=== PATIENT | female | born 1980 | race Caucasian/White ===

== ENCOUNTER 2017-02-18 10:07 | Emergency (ER) | payer OTHER ==
[~2017-02-18] VITALS: Ht 160 cm; Wt 80.4 kg
[~2017-02-18 10:07] MED LIST: DOCO200C PO; FISHCAP; IBUP600 PO; OXYC1SOL5 PO; PERI8.6T PO; VITA400C28
[2017-02-18 10:15] VITALS: BP 114/85; PULSE 116; RESP 15; TEMP 99.3; O2SAT 99
--- NOTE | 2017-02-18 10:39 | PD ---
HPI Chief Complaint: Anxiety Time Seen by Provider: 10:28 Travel History International Travel<30 days: No Contact w/Intl Traveler<30days: No Traveled to known affect area: No History of Present Illness HPI This 36-year-old female says she has not felt well for about a year and a half. She says she had a baby by year and a half ago she felt really well. She states that certain foods seem to make him nauseated. Since then she just feels weak and has palpitations. She does say she's been under some stress. She is going through divorce but thinks the stress that was less than before. She does say that her blood sugar has been elevated in the past and she was told she should keep an eye on it. She has been taking aspirin without much relief PFSH Past Medical History Medical History: Denies Significant Hx Diminished Hearing: No Influenza Vaccination: No ?: Unknown LMP: 1 MONTH Past Surgical History Section: Yes Social History Alcohol Use: No Tobacco Use: No Allergies-Medications (Allergen,Severity, Reaction): Coded Allergies: No Known Allergies (Unverified , 02/18/17) Reported Meds & Prescriptions Reported Meds & Active Scripts Active Review of Systems General / Constitutional: No: Fever, Chills Eyes: No: Diploplia, Blurred Vision HENT: No: Headaches, Vertigo Cardiovascular: No: Chest Pain or Discomfort, Palpitations Respiratory: No: Cough Gastrointestinal: Positive: Nausea, No: Vomiting, Diarrhea Genitourinary: No: Frequency Musculoskeletal: Positive: Myalgias, Arthralgias Skin: No Rash, No Dryness Neurologic: Positive: Weakness Physical Exam Narrative GENERAL: Well-developed female SKIN: Focused skin assessment warm/dry. HEAD: Atraumatic. Normocephalic. EYES: Pupils equal and round. No scleral icterus. No injection or drainage. ENT: No nasal bleeding or discharge. Mucous membranes pink and moist. NECK: Trachea midline. No JVD. CARDIOVASCULAR: Regular rate and rhythm. No murmur appreciated. RESPIRATORY: No accessory muscle use. Clear to auscultation. Breath sounds equal bilaterally. GASTROINTESTINAL: Abdomen soft, non-tender, nondistended. Hepatic and splenic margins not palpable. MUSCULOSKELETAL: No obvious deformities. No clubbing. No cyanosis. No edema. NEUROLOGICAL: Awake and alert. No obvious cranial nerve deficits. Motor grossly within normal limits. Normal speech. PSYCHIATRIC: Appropriate mood and affect; insight and judgment normal. Data Data Last Documented VS Vital Signs Date Time Temp Pulse Resp B/P Pulse Ox O2 Delivery O2 Flow Rate FiO2 02/18/17 11:15 106 18 106/68 99 Room Air 02/18/17 10:15 99.3 Orders Electrocardiogram (02/18/17 10:36) Complete Blood Count With Diff (02/18/17 10:36) Basic Metabolic Panel (Bmp) (02/18/17 10:36) Urinalysis - C+S If Indicated (02/18/17 10:36) Ed Urine Pregnancytest Poc (02/18/17 10:40) Labs Laboratory Tests Test 02/18/17 02/18/17 10:30 11:00 Urine Collection Type CLEAN CATCH Urine Color YELLOW Urine Turbidity CLEAR Urine pH 7.0 Urine Specific [place] 1.020 Urine Protein NEG mg/dL Urine Glucose (UA) NEG mg/dL Urine Ketones NEG mg/dL Urine Occult Blood TRACE Urine Nitrite NEG Urine Bilirubin NEG Urine Leukocyte Esterase NEG Urine RBC 0-3 /hpf Urine WBC 0-2 /hpf Urine Squamous Epithelial 0-5 /hpf Cells Microscopic Urinalysis Comment CULT NOT INDICATED White Blood Count 7.4 TH/MM3 Red Blood Count 4.45 MIL/MM3 Hemoglobin 12.6 GM/DL Hematocrit 37.4 % Mean Corpuscular Volume 84.0 FL Mean Corpuscular Hemoglobin 28.3 PG Mean Corpuscular Hemoglobin 33.7 % Concent Red Cell Distribution Width 12.3 % Platelet Count 230 TH/MM3 Mean Platelet Volume 7.8 FL Neutrophils (%) (Auto) 88.4 % Lymphocytes (%) (Auto) 6.6 % Monocytes (%) (Auto) 4.1 % Eosinophils (%) (Auto) 0.7 % Basophils (%) (Auto) 0.2 % Neutrophils # (Auto) 6.5 TH/MM3 Lymphocytes # (Auto) 0.5 TH/MM3 Monocytes # (Auto) 0.3 TH/MM3 Eosinophils # (Auto) 0.1 TH/MM3 Basophils # (Auto) 0.0 TH/MM3 CBC Comment DIFF FINAL Differential Comment Sodium Level 142 MEQ/L Potassium Level 3.6 MEQ/L Chloride Level 106 MEQ/L Carbon Dioxide Level 27.0 MEQ/L Anion Gap 9 MEQ/L Blood Urea Nitrogen 11 MG/DL Creatinine 0.79 MG/DL Estimat Glomerular Filtration 82 ML/MIN Rate Random Glucose 96 MG/DL Calcium Level 8.4 MG/DL [facility] Medical Decision Making Medical Screen Exam Complete: Yes Emergency Medical Condition: Yes Medical Record Reviewed: Yes Differential Diagnosis Differential includes diabetes, anemia, generalized malaise, anxiety Narrative Course EKG shows normal sinus rhythm. CBC and 7 are unremarkable. Patient does not have diabetes. Symptoms are nonspecific and I will recommend follow-up with her primary care physician Diagnosis Primary Impression: Nausea Scripts Ondansetron Odt (Zofran Odt)4 Mg Tab4 Mg SL Q6HR PRN (Nausea/Vomiting) #15 TAB Ref 0 Prov:Frank Calvert MD 02/18/17 Disposition: 01 DISCHARGE HOME Condition: Stable Frank Calvert MD Feb 18, 2017 10:39
[2017-02-18 10:57] LABS: BLOOD, URINE TRACE (NEG); GLUCOSE,URINE NEG (NEG); KETONE, URINE NEG (NEG); NITRITE,URINE NEG (NEG)
[2017-02-18 10:59] LABS: METHOD OF COLLECTION CLEAN CATCH; URINE COLOR YELLOW (YELLW/STRAW)
[2017-02-18 11:06] LABS: AUTOMATED NEUTROPHIL # 6.5 TH/MM3 (1.8-7.7); BASOPHIL % 0.2 % (0.0-2.0); EOSINOPHIL # 0.1 TH/MM3 (0-0.4); EOSINOPHIL % 0.7 % (0.0-4.0); HEMATOCRIT 37.4 % (35.0-46.0); HEMO FLAGS DIFF FINAL; LYMPH % 6.6 % (9.0-44.0); LYMPHOCYTE # 0.5 TH/MM3 (1.0-4.8); MEAN CORPUSCULAR HEMOGLOBIN 28.3 PG (27.0-34.0); MEAN CORPUSCULAR HGB CONC 33.7 % (32.0-36.0); MONO % 4.1 % (0.0-8.0); NEUT % 88.4 % (16.0-70.0); PLATELET COUNT 230 TH/MM3 (150-450); RED BLOOD COUNT 4.45 MIL/MM3 (4.00-5.30); RED CELL DISTRIBUTION WIDTH 12.3 % (11.6-17.2); WHITE BLOOD COUNT 7.4 TH/MM3 (4.0-11.0)
[2017-02-18 11:06] LABS: COMMENT (UR) CULT NOT INDICATED; CULTURE IF INDICATED CULT NOT INDICATED; RBC, URINE 0-3 /hpf (0-3); SQUAMOUS EPITHELIAL CELL URINE 0-5 /hpf (0-5); WBC, URINE 0-2 /hpf (0-5)
[2017-02-18 11:14] LABS: POTASSIUM 3.6 MEQ/L (3.5-5.1)
[2017-02-18 11:15] VITALS: BP 106/68; PULSE 106; RESP 18; O2SAT 99
[2017-02-18] MEDS ORDERED: ZOFR4TAB3 SL (11:55)
--- NOTE | 2017-02-19 12:38 | EKG ---
Date Performed: 02/18/2017 Time Performed: 10:56:49 PTAGE: 36 years EKG: SINUS TACHYCARDIA ABNORMAL RHYTHM ECG NO PREVIOUS TRACING DOCTOR: Crow Steinberg Interpretating Date/Time 02/19/2017 12:33:52
== END 2017-02-18 12:06 | disposition home or self-care (01) ==
LOC: PHED 10:07
DX: R11.0 Nausea (principal); R00.2 Palpitations
CPT/HCPCS: 80048; 81001; 84703; 85025; 93005